=== PATIENT | male | born 1965 | race Caucasian/White ===

== ENCOUNTER 2017-08-20 14:28 | Observation (INO) | payer MEDICARE ==
[~2017-08-20] VITALS: Ht 175.3 cm; Wt 96.0 kg
[2017-08-20 14:32] VITALS: BP 128/92; PULSE 121; RESP 26; O2SAT 97
--- NOTE | 2017-08-20 14:49 | PD ---
HPI Chief Complaint: Neuro Symptoms/ Deficits Time Seen by Provider: 14:41 Travel History International Travel<30 days: No Contact w/Intl Traveler<30days: No Traveled to known affect area: No History of Present Illness HPI Patient came from [place] and apparently is out of his medication for 3 days: Klonopin, gabapentin, metoprolol 25 daily. Reported feeling dizzy, vomiting, bilateral arms feel heavy, shortness of breath, numbness in his hands bilaterally. He does have neuropathy. He denies fever, chest pain but reports some shortness of breath. [facility] Past Medical History Diabetes: Yes (BORDERLINE ) Patient Takes Glucophage: No Hypertension: Yes Medical other: Yes (NEUROPATHY ) Influenza Vaccination: Yes Past Surgical History Appendectomy: Yes Cholecystectomy: Yes Other Surgery: Yes (SPLEENECTOMY) Social History Alcohol Use: No Tobacco Use: No Substance Use: No Allergies-Medications (Allergen,Severity, Reaction): Coded Allergies: Iodinated Contrast- Oral and IV Dye (Verified Allergy, Unknown, 08/20/17) Penicillins (Verified Allergy, Unknown, 08/20/17) ropinirole (Verified Allergy, Unknown, 08/20/17) Review of Systems Except as stated in HPI: all other systems reviewed are Neg Physical Exam Narrative GENERAL: No acute distress. SKIN: Focused skin assessment warm/dry. HEAD: Atraumatic. Normocephalic. EYES: Pupils equal and round. Truncal muscles intact bilaterally. No scleral icterus. No injection or drainage. ENT: No nasal bleeding or discharge. Mucous membranes pink and moist. NECK: Trachea midline. No JVD. CARDIOVASCULAR: Regular rate and rhythm. No murmur appreciated. RESPIRATORY: No accessory muscle use. Clear to auscultation. Breath sounds equal bilaterally. GASTROINTESTINAL: Abdomen soft, non-tender, nondistended. Hepatic and splenic margins not palpable. MUSCULOSKELETAL: No obvious deformities. No clubbing. No cyanosis. No edema. NEUROLOGICAL: Awake and alert. No obvious cranial nerve deficits. Motor grossly within normal limits. Normal speech. GCS 15. NIH stroke scale of 1 for sensory in the face greater in the left than the right. PSYCHIATRIC: Appropriate mood and affect; insight and judgment normal. Data Data Last Documented VS Vital Signs Date Time Temp Pulse Resp B/P (MAP) Pulse Ox O2 Delivery O2 Flow Rate FiO2 08/20/17 17:36 120 21 125/74 (91) 96 Room Air Orders Orders Electrocardiogram (08/20/17 14:41) Prothrombin Time / Inr (Pt) (08/20/17 14:41) Act Partial Throm Time (Ptt) (08/20/17 14:41) Complete Blood Count With Diff (08/20/17 14:41) Comprehensive Metabolic Panel (08/20/17 14:41) Creatine Kinase (Cpk) (08/20/17 14:41) Drug Screen, Random Urine (08/20/17 14:41) Troponin I (08/20/17 14:41) Urinalysis - C+S If Indicated (08/20/17 14:41) Ct Brain W/O Iv Contrast(Rout) (08/20/17 14:41) Chest, Single Ap (08/20/17 14:41) Iv Access Insert/Monitor (08/20/17 14:41) Oximetry (08/20/17 14:41) Blood Glucose (08/20/17 14:41) Ckmb (Isoenzyme) Profile (08/20/17 14:41) Ct Abd/Pel W/O Iv Contrast (08/20/17 15:42) Prochlorperazine Inj (Compazine Inj) (08/20/17 15:45) Metoprolol Tartrate (Lopressor) (08/20/17 17:00) Lactic Acid (08/20/17 16:50) Sodium Chlor 0.9% 1000 Ml Inj (Ns 1000 M (08/20/17 17:15) Lorazepam Inj (Ativan Inj) (08/20/17 18:15) Admit Order (Ed Use Only) (08/20/17 18:28) Labs Laboratory Tests Test 08/20/17 15:02 08/20/17 17:11 White Blood Count 12.3 TH/MM3 Red Blood Count 4.70 MIL/MM3 Hemoglobin 14.5 GM/DL Hematocrit 43.5 % Mean Corpuscular Volume 92.5 FL Mean Corpuscular Hemoglobin 30.8 PG Mean Corpuscular Hemoglobin Concent 33.3 % Red Cell Distribution Width 14.4 % Platelet Count 381 TH/MM3 Mean Platelet Volume 9.0 FL Neutrophils (%) (Auto) 55.3 % Lymphocytes (%) (Auto) 30.7 % Monocytes (%) (Auto) 10.9 % Eosinophils (%) (Auto) 2.1 % Basophils (%) (Auto) 1.0 % Neutrophils # (Auto) 6.8 TH/MM3 Lymphocytes # (Auto) 3.8 TH/MM3 Monocytes # (Auto) 1.3 TH/MM3 Eosinophils # (Auto) 0.3 TH/MM3 Basophils # (Auto) 0.1 TH/MM3 CBC Comment DIFF FINAL Differential Comment Prothrombin Time 10.7 SEC Prothromb Time International Ratio 1.1 RATIO Activated Partial Thromboplast Time 25.0 SEC Urine Color YELLOW Urine Turbidity HAZY Urine pH 5.0 Urine Specific [place] 1.025 Urine Protein 30 mg/dL Urine Glucose (UA) NEG mg/dL Urine Ketones 20 mg/dL Urine Occult Blood SMALL Urine Nitrite NEG Urine Bilirubin NEG Urine Urobilinogen LESS THAN 2 mg/dL Urine Leukocyte Esterase NEG Urine RBC 1 /hpf Urine WBC 1 /hpf Urine Squamous Epithelial Cells <1 /hpf Urine Mucus FEW /lpf Microscopic Urinalysis Comment CATH-CULT NOT IND Blood Urea Nitrogen 13 MG/DL Creatinine 1.25 MG/DL Random Glucose 140 MG/DL Total Protein 8.1 GM/DL Albumin 4.1 GM/DL Calcium Level 8.4 MG/DL Alkaline Phosphatase 103 U/L Aspartate Amino Transf (AST/SGOT) 29 U/L Alanine Aminotransferase (ALT/SGPT) 30 U/L Total Bilirubin 0.8 MG/DL Sodium Level 139 MEQ/L Potassium Level 3.7 MEQ/L Chloride Level 107 MEQ/L Carbon Dioxide Level 21.5 MEQ/L Anion Gap 11 MEQ/L Estimat Glomerular Filtration Rate 61 ML/MIN Total Creatine Kinase 85 U/L Troponin I LESS THAN 0.02 NG/ML Urine Opiates Screen NEG Urine Barbiturates Screen NEG Urine Amphetamines Screen NEG Urine Benzodiazepines Screen NEG Urine Cocaine Screen NEG Urine Cannabinoids Screen NEG Lactic Acid Level 1.7 mmol/L MDM Medical Decision Making Medical Screen Exam Complete: Yes Emergency Medical Condition: Yes Interpretation(s) ECG: Sinus tach, rate 116, Labs: elevated wbc count, ua-neg LE/nitrite, UDS-neg Last Impressions Abdomen/Pelvis CT 08/20/17 1542 Signed Impressions: CONCLUSION: 1. I do not see an etiology of patient's abdominal pain whose had appendectomy . Head CT 08/20/17 1441 Signed Impressions: CONCLUSION: 1. Negative for acute process Chest X-Ray 08/20/17 1441 Signed Impressions: CONCLUSION: Mild compensated cardiomegaly with minimal parental changes left base Differential Diagnosis Neuropathy, TIA, CVA, ACS Narrative Course Patient presents with vomiting lateral arm feeling "heavy." She placed on shelter monitor, head CT/EKG/chest x-ray/labs/IVF ordered. Patient persistently tachy (110s-120s) despite po metoprolol, IVF, and IV ativan. Will admit for observation. Diagnosis Primary Impression: Tachycardia Admitting Information Admitting Physician Requests: Observation Condition: Stable Radha Rodriguez MD Aug 20, 2017 14:49
[2017-08-20 15:22] LABS: BILIRUBIN, URINE NEG (NEG); BLOOD, URINE SMALL (NEG); GLUCOSE,URINE NEG (NEG); KETONE, URINE 20 mg/dL (NEG); MUCUS URINE FEW /lpf (OCC); NITRITE,URINE NEG (NEG); SQUAMOUS EPITHELIAL CELL URINE <1 /hpf (0-5); URINE COLOR YELLOW (YELLW/STRAW); URINE LEUKOCYTE ESTERASE NEG (NEG)
[2017-08-20 15:26] LABS: AUTOMATED NEUTROPHIL # 6.8 TH/MM3 (1.8-7.7); BASOPHIL # 0.1 TH/MM3 (0-0.2); EOSINOPHIL # 0.3 TH/MM3 (0-0.4); EOSINOPHIL % 2.1 % (0.0-4.0); HEMATOCRIT 43.5 % (39.0-51.0); HEMOGLOBIN 14.5 GM/DL (13.0-17.0); LYMPH % 30.7 % (9.0-44.0); LYMPHOCYTE # 3.8 TH/MM3 (1.0-4.8); MEAN CELL VOLUME 92.5 FL (80.0-100.0); MEAN CORPUSCULAR HEMOGLOBIN 30.8 PG (27.0-34.0); MEAN CORPUSCULAR HGB CONC 33.3 % (32.0-36.0); MONO % 10.9 % (0.0-8.0); MONOCYTE # 1.3 TH/MM3 (0-0.9); NEUT % 55.3 % (16.0-70.0); PLATELET COUNT 381 TH/MM3 (150-450); RED CELL DISTRIBUTION WIDTH 14.4 % (11.6-17.2); WHITE BLOOD COUNT 12.3 TH/MM3 (4.0-11.0)
[2017-08-20 15:41] LABS: ALBUMIN 4.1 GM/DL (3.4-5.0); ALT (GPT) 30 U/L (12-78); AST (GOT) 29 U/L (15-37); BICARBONATE 21.5 MEQ/L (21.0-32.0); BLOOD UREA NITROGEN 13 MG/DL (7-18); CALCIUM 8.4 MG/DL (8.5-10.1); CHLORIDE 107 MEQ/L (98-107); CREATININE 1.25 MG/DL (0.60-1.30); GLOMERULAR FILTRATION RATE 61 ML/MIN (>89); GLUCOSE,RANDOM 140 MG/DL (74-106); SODIUM (NA) 139 MEQ/L (136-145)
[2017-08-20 15:43] LABS: INTERNATIONAL NORMALIZED RATIO 1.1 RATIO; PROTHROMBIN TIME - PATIENT 10.7 SEC (9.8-11.6)
[2017-08-20 15:45] LABS: ALKALINE PHOSPHATASE 103 U/L (45-117); TOTAL BILIRUBIN ADULT 0.8 MG/DL (0.2-1.0); TOTAL PROTEIN 8.1 GM/DL (6.4-8.2); TROPONIN I LESS THAN 0.02 NG/ML (0.02-0.05)
[2017-08-20] MEDS ORDERED: PROCHLORPERAZINE INJ 10 MG/2 ML VIAL IV PUSH ONE (15:45)
--- NOTE | 2017-08-20 15:58 | RADRPT ---
EXAM DATE: 08/20/2017 3:46 PM EDT AGE/SEX: 51 years / Male INDICATIONS: Vomiting. CLINICAL DATA: This is the patient's initial encounter. Patient reports that signs and symptoms have been present for 1 day and indicates a pain score of 0/10. MEDICAL/SURGICAL HISTORY: . high blood pressure, SVT Splenectomy. COMPARISON: No prior exams available for comparison. FINDINGS: Minimal parental changes left base. Right lung clear. Mild cardiomegaly. The portion of the bony skel eton visualized is unremarkable. CONCLUSION: Mild compensated cardiomegaly with minimal parental changes left base Electronically signed by: Joe Raymond MD 08/20/2017 3:56 PM EDT
--- NOTE | 2017-08-20 16:31 | RADRPT ---
EXAM DATE: 08/20/2017 4:28 PM EDT AGE/SEX: 51 years / Male INDICATIONS: Bilateral upper extremity numbness. CLINICAL DATA: This is the patient's initial encounter. Patient reports that signs and symptoms have been present for 1 day and indicates a pain score of 0/10. MEDICAL/SURGICAL HISTORY: Diabetes. Hypertension. Appendectomy. Cholecystectomy. Splenectomy. RADIATION DOSE: 46.68 CTDI (mGy) COMPARISON: No prior exams available for comparison. TECHNIQUE: CT of the head without contrast. Using automated exposure control and adjustment of the mA and/or kV according to patient size, radiation dose was kept as low as reasonably achievable to ob tain optimal diagnostic quality images. FINDINGS: Cerebrum: The ventricles are normal for age. No evidence of midline shift, mass lesion, hemorrhage or acute infarction. No extraaxial fluid collections are seen. Posterior Fossa: The cerebellum and brainstem are intact. The 4th ventricle is midline. The cerebe llopontine angle is unremarkable. Extracranial: The visualized portion of the orbits is intact. Skull: The calvaria is intact. No evidence of skull fracture. CONCLUSION: 1. Negative for acute process Electronically signed by: Joe Raymond MD 08/20/2017 4:30 PM EDT
--- NOTE | 2017-08-20 16:33 | RADRPT ---
EXAM DATE: 08/20/2017 4:25 PM EDT AGE/SEX: 51 years / Male INDICATIONS: Right lower abdomen pain today. CLINICAL DATA: This is the patient's initial encounter. Patient reports that signs and symptoms have been present for 1 day and indicates a pain score of 7/10. MEDICAL/SURGICAL HISTORY: Hypertension. Diabetes. Cholecystectomy. Splenectomy. Appendectomy . RADIATION DOSE: 14.86 CTDI (mGy) COMPARISON: No prior exams available for comparison. TECHNIQUE: Multiple contiguous axial images were obtained through the abdomen. Images were obtained using multiple row detector helical technique. Using dose reduction techniques, radiation dose was ke pt as low as reasonably achievable to obtain optimal diagnostic quality images. FINDINGS: The lower lungs are clear. Mild fatty replacement to the liver Spleen is surgically absent. A small apparent splenial is evident. Pancreas and adrenal glands are unremarkable Right and left kidneys appear normal There are no inflammatory changes in the abdomen The cecum is unremarkable. There are no inflammatory changes evident. In the pelvis minimal stool is seen in the sigmoid colon. There is no adnexal mass. Review of bone windows reveals mild degenerative changes lower lumbar spine. CONCLUSION: 1. I do not see an etiology of patient's abdominal pain whose had appendectomy. Electronically signed by: Joe Raymond MD 08/20/2017 4:32 PM EDT
[2017-08-20] MEDS ORDERED: METOPROLOL TARTRATE 25 MG TAB PO ONE (17:00)
[2017-08-20] MEDS ORDERED: SODIUM CHLOR 0.9% 1000 ML INJ 1,000 ML IV ONE (17:15)
[2017-08-20 17:36] VITALS: BP 125/74; PULSE 120; RESP 21; O2SAT 96
[2017-08-20] MEDS ORDERED: LORazepam 2 MG/ML VIAL IV PUSH ONE (18:15)
[2017-08-20 18:31] VITALS: BP 121/76; PULSE 101; RESP 21; O2SAT 95
[2017-08-20 19:19] VITALS: BP 132/63; PULSE 101; RESP 20; O2SAT 95
[2017-08-20] MEDS ORDERED: NALOXONE HCL 0.4 MG/ML AMP IV PUSH PRN (19:30)
[2017-08-20] MEDS ORDERED: SODIUM CHLORIDE 0.9% FLUSH 10 ML FLUSH IV FLUSH PRN (19:30)
[2017-08-20] MEDS ORDERED: ACETAMINOPHEN 325 MG TAB PO PRN (19:30)
--- NOTE | 2017-08-20 19:36 | EKG ---
Date Performed: 08/20/2017 Time Performed: 14:38:45 PTAGE: 51 years EKG: Baseline artifact present SINUS TACHYCARDIA POSSIBLE ANTERIOR MYOCARDIAL INFARCTION ABNORMA L ECG NO PREVIOUS TRACING DOCTOR: Sunil Muro Interpretating Date/Time 08/20/2017 19:35:13
[2017-08-20] MEDS ORDERED: ONDANSETRON ODT 4 MG TAB PO PRN (19:45)
[2017-08-20] MEDS ORDERED: NEUR600T PO (19:51)
[2017-08-20] MEDS ORDERED: PAXI10TA8 PO (19:51)
[2017-08-20] MEDS ORDERED: ZANT150T2 PO (19:51)
[2017-08-20] MEDS ORDERED: CETI10CA3 PO (19:51)
[2017-08-20] MEDS ORDERED: KLON2TAB PO (19:51)
[2017-08-20] MEDS ORDERED: METO1TAB42 PO (19:51)
[2017-08-20] MEDS ORDERED: MAGNESIUM PO (19:51)
[2017-08-20] MEDS ORDERED: MONT10TA2 PO (19:51)
[2017-08-20] MEDS ORDERED: SODIUM CHLOR 0.9% 1000 ML INJ 1,000 ML IV SCH (20:00)
[2017-08-20] MEDS: SODIUM CHLORIDE 0.9% FLUSH 10 ML FLUSH IV FLUSH SCH (20:41)
[2017-08-20 20:55] VITALS: BP 127/83; PULSE 97; RESP 17; TEMP 98.7; O2SAT 95
[2017-08-20 21:43] VITALS: PULSE 103
[2017-08-20 22:27] LABS: TROPONIN I LESS THAN 0.02 NG/ML (0.02-0.05)
--- NOTE | 2017-08-20 22:36 | HHI.HP ---
[facility] Admission Diagnosis persistent tachycardia Diagnoses: (1) Tachycardia Chief Complaint: nausea with vomiting Travel History International Travel<30 Days: No Contact w/Intl Traveler <30 Da: No Traveled to Known Affected Are: No History of Present Illness Mr. Lara is a 51-year-old male with a history of SVT, diet controlled type 2 diabetes mellitus, hypertension, asthma, seasonal allergies, anxiety, GERD, fibromyalgia, restless leg syndrome, and diet-controlled hyperlipidemia who presents to the emergency room on 08/20/2017 complaining of dizziness with severe nausea and vomiting 1 episode. He also complained of hyperventilation, bilateral arm heaviness, and bilateral hand numbness and was admitted to observation under the [facility] service. The patient is seen in the CDU. He states that he is visiting here from [place] and left all of his medications at home -he has not taken them since Sunday. Today he was experiencing dizziness and nausea with palpitations. He and his thought his blood sugar might be low and he went to a pancake house to get some food but subsequently vomited the food resulting in hyperventilation because he was "trying not to vomit" by breathing fast and hard. He denies feeling short of breath at any point in time. He does report palpitations that lasted for about 20-30 minutes but denies chest pain or pressure or any discomfort. He reports some bilateral arm heaviness with bilateral hand numbness during this time. His most recent hemoglobin A1c was 6.3. He sees Dr. Geoff Magdaleno - outsole cementer machine in [place] for history of SVT. His PCP is Dr. Eden in [place]. He denies any history of [place]. Patient's EKG shows q waves in V3 and V4 x 2 EKGs at this time. One more is pending. Review of Systems Except as stated in HPI: all other systems reviewed are Neg Past Family Social History Past Medical History SVT, diet controlled type 2 diabetes mellitus, hypertension, asthma, seasonal allergies, anxiety, GERD, fibromyalgia, restless leg syndrome, and diet- controlled hyperlipidemia . Past Surgical History Appendectomy Cholecystectomy Splenectomy Colonoscopies . Reported Medications Reported Meds & Active Scripts Active Reported Zyrtec (Cetirizine HCl) 10 Mg Capsule 10 Mg PO HS Singulair (Montelukast Sodium) 10 Mg Tab 10 Mg PO HS Klonopin (Clonazepam) 2 Mg Tab 2 Mg PO HS Neurontin (Gabapentin) 600 Mg Tab 600 Mg PO HS [Magnesium ] 500 Mg PO HS Paxil (Paroxetine HCl) 10 Mg Tab 40 Mg PO DAILY Metoprolol Succinate ER 24 HR (Metoprolol Succinate) 25 Mg Tab 25 Mg PO DAILY Zantac (Ranitidine HCl) 150 Mg Tab 150 Mg PO BID . Allergies: Coded Allergies: Iodinated Contrast- Oral and IV Dye (Verified Allergy, Unknown, 08/20/17) Penicillins (Verified Allergy, Unknown, 08/20/17) ropinirole (Verified Allergy, Unknown, 08/20/17) Family History Paternal grandfather with aortic aneurysm Mother with colon cancer, age 37 and also had arthritis Unaware of who his father is . Social History Tobacco: Smoked from ages [age] -a couple of cigarettes here and there, quit smoking 30 years ago Alcohol: Denies Illicit Drugs: Denies . . Physical Exam Vital Signs Vital Signs Date Time Temp Pulse Resp B/P (MAP) Pulse Ox O2 Delivery O2 Flow Rate FiO2 08/20/17 21:43 103 08/20/17 20:55 98.7 97 17 127/83 (98) 95 08/20/17 20:05 08/20/17 19:19 101 20 132/63 (86) 95 Room Air 08/20/17 18:31 101 21 121/76 (91) 95 Room Air 08/20/17 17:36 120 21 125/74 (91) 96 Room Air 08/20/17 14:38 97 Room Air 08/20/17 14:32 121 26 128/92 (104) 97 Physical Exam GENERAL: This is a pleasant overweight middle-aged male patient, in no apparent distress. SKIN: No rashes, ecchymoses or lesions. Cool and dry. HEAD: Atraumatic. Normocephalic. EYES: No scleral icterus. No injection or drainage. ENT: Nose without bleeding, purulent drainage. NECK: Trachea midline. No JVD or lymphadenopathy. CARDIOVASCULAR: Regular rate and rhythm without murmurs, gallops, or rubs. RESPIRATORY: Clear to auscultation. Breath sounds equal bilaterally. No wheezes , rales, or rhonchi. GASTROINTESTINAL: Normally active bowel sounds. Abdomen soft, mildly tender to palpation right lower quadrant, nondistended. No guarding. No rebound. MUSCULOSKELETAL: Extremities without clubbing, cyanosis, or edema. No calf tenderness. NEUROLOGICAL: Awake and alert. Motor and sensory grossly within normal limits. Normal speech. . Laboratory Laboratory Tests Test 08/20/17 15:02 08/20/17 17:11 08/20/17 21:22 White Blood Count 12.3 Red Blood Count 4.70 Hemoglobin 14.5 Hematocrit 43.5 Mean Corpuscular Volume 92.5 Mean Corpuscular Hemoglobin 30.8 Mean Corpuscular Hemoglobin Concent 33.3 Red Cell Distribution Width 14.4 Platelet Count 381 Mean Platelet Volume 9.0 Neutrophils (%) (Auto) 55.3 Lymphocytes (%) (Auto) 30.7 Monocytes (%) (Auto) 10.9 Eosinophils (%) (Auto) 2.1 Basophils (%) (Auto) 1.0 Neutrophils # (Auto) 6.8 Lymphocytes # (Auto) 3.8 Monocytes # (Auto) 1.3 Eosinophils # (Auto) 0.3 Basophils # (Auto) 0.1 CBC Comment DIFF FINAL Differential Comment Prothrombin Time 10.7 Prothromb Time International Ratio 1.1 Activated Partial Thromboplast Time 25.0 Urine Color YELLOW Urine Turbidity HAZY Urine pH 5.0 Urine Specific [place] 1.025 Urine Protein 30 Urine Glucose (UA) NEG Urine Ketones 20 Urine Occult Blood SMALL Urine Nitrite NEG Urine Bilirubin NEG Urine Urobilinogen LESS THAN 2 Urine Leukocyte Esterase NEG Urine RBC 1 Urine WBC 1 Urine Squamous Epithelial Cells <1 Urine Mucus FEW Microscopic Urinalysis Comment CATH-CULT NOT IND Blood Urea Nitrogen 13 Creatinine 1.25 Random Glucose 140 Total Protein 8.1 Albumin 4.1 Calcium Level 8.4 Alkaline Phosphatase 103 Aspartate Amino Transf (AST/SGOT) 29 Alanine Aminotransferase (ALT/SGPT) 30 Total Bilirubin 0.8 Sodium Level 139 Potassium Level 3.7 Chloride Level 107 Carbon Dioxide Level 21.5 Anion Gap 11 Estimat Glomerular Filtration Rate 61 Total Creatine Kinase 85 113 Troponin I LESS THAN 0.02 LESS THAN 0.02 Urine Opiates Screen NEG Urine Barbiturates Screen NEG Urine Amphetamines Screen NEG Urine Benzodiazepines Screen NEG Urine Cocaine Screen NEG Urine Cannabinoids Screen NEG Lactic Acid Level 1.7 Result Diagram: 08/20/17 1502 08/20/17 1502 Imaging Last Impressions Abdomen/Pelvis CT 08/20/17 1542 Signed Impressions: CONCLUSION: 1. I do not see an etiology of patient's abdominal pain whose had appendectomy . Head CT 08/20/17 1441 Signed Impressions: CONCLUSION: 1. Negative for acute process Chest X-Ray 08/20/17 1441 Signed Impressions: CONCLUSION: Mild compensated cardiomegaly with minimal parental changes left base Caprini VTE Risk Assessment Caprini VTE Risk Assessment: Mod/High Risk (score >= 2) Caprini Risk Assessment Model Point Value = 1 Point Value = 2 Point Value = 3 Point Value = 5 Age 41-60 Minor surgery BMI > 25 kg/m2 Swollen legs Varicose veins or History of unexplained or recurrent spontaneous Oral contraceptives or hormone replacement Sepsis (< 1 month) Serious lung disease, including pneumonia (< 1 month) Abnormal pulmonary function Acute myocardial infarction Congestive heart failure (< 1 month) History of inflammatory bowel disease Medical patient at bed rest Age 61-74 Arthroscopic surgery Major open surgery (> 45 min) Laparoscopic surgery (> 45 min) Malignancy Confined to bed (> 72 hours) Immobilizing plaster cast Central venous access Age >= 75 History of VTE Family history of VTE Factor V Leiden Prothrombin [id number] Lupus anticoagulant Anticardiolipin antibodies Elevated serum homocysteine Heparin-induced thrombocytopenia Other congenital or acquired thrombophilia Stroke (< 1 month) Elective arthroplasty Hip, pelvis, or leg fracture Acute spinal cord injury (< 1 month) Prophylaxis Regimen Total Risk Factor Score Risk Level Prophylaxis Regimen 0-1 Low Early ambulation 2 Moderate Order ONE of the following: *Sequential Compression Device (SCD) *Heparin 5000 units SQ BID 3-4 Higher Order ONE of the following medications: *Heparin 5000 units SQ TID *Enoxaparin/Lovenox 40 mg SQ daily (WT < 150 kg, CrCl > 30 mL/min) *Enoxaparin/Lovenox 30 mg SQ daily (WT < 150 kg, CrCl > 10-29 mL/min) *Enoxaparin/Lovenox 30 mg SQ BID (WT < 150 kg, CrCl > 30 mL/min) AND/OR *Sequential Compression Device (SCD) 5 or more Highest Order ONE of the following medications: *Heparin 5000 units SQ TID (Preferred with Epidurals) *Enoxaparin/Lovenox 40 mg SQ daily (WT < 150 kg, CrCl > 30 mL/min) *Enoxaparin/Lovenox 30 mg SQ daily (WT < 150 kg, CrCl > 10-29 mL/min) *Enoxaparin/Lovenox 30 mg SQ BID (WT < 150 kg, CrCl > 30 mL/min) AND *Sequential Compression Device (SCD) Assessment and Plan Problem List: (1) Tachycardia ICD Code: R00.0 - Tachycardia, unspecified Status: Acute Assessment and Plan Mr. Lara is a 51-year-old male with a history of SVT, diet controlled type 2 diabetes mellitus, hypertension, asthma, seasonal allergies, anxiety, GERD, fibromyalgia, restless leg syndrome, and diet-controlled hyperlipidemia who presents to the emergency room on 08/20/2017 complaining of dizziness with severe nausea and vomiting 1 episode. He also complained of hyperventilation, bilateral arm heaviness, and bilateral hand numbness and was [facility]. Tachycardia - Likely secondary to beta-elvin withdrawal and possible benzodiazepine withdrawal/anxiety - Home metoprolol and Klonopin restarted - IV fluid hydration with normal saline at 100 cc/h -Continuous cardiac telemetry to monitor for cardiac arrhythmia Concern for atypical chest pain - We will rule out ACS with serial EKGs and cardiac enzymes - Discussed Q-wave in V3 and V4 with patient he will follow-up with outpatient outsole cementer machine upon discharge Nausea with vomiting - Zofran 4 mg p.o. every 6 hours as needed nausea and vomiting - IV fluid hydration with normal saline at 100 cc/h - We will start full liquid diet and progress if tolerated -if tolerates liquids , will DC IV fluids Leukocytosis - Patient reports leukocytes elevated chronically since splenectomy and states 12.3 (on admission) is normal for him - We will recheck CBC in a.m. and follow results Chronic pain secondary to fibromyalgia and RLS - resume Klonopin as above and Gabapentin Type 2 Diabetes Mellitus - diet controlled - Accu-Cheks before meals and at bedtime with low-dose NovoLog sliding scale coverage - As needed hypoglycemia protocol - Monitor trends and blood glucose readings and adjust treatments as indicated DVT prophylaxis - SCDs/TEDs . Discussed Condition With patient, RN, and Dr. Ley . Saray Quevedo Aug 20, 2017 22:36
[2017-08-20] MEDS ORDERED: CETIRIZINE HCL 10 MG PO SCH (22:45)
[2017-08-20] MEDS ORDERED: MONTELUKAST SODIUM 10 MG TAB PO SCH (22:45)
[2017-08-20] MEDS ORDERED: clonazePAM 1 MG TAB PO SCH (22:45)
[2017-08-20] MEDS ORDERED: GABAPENTIN 300 MG CAP PO SCH (22:45)
[2017-08-21 01:35] VITALS: BP 115/63; PULSE 93; RESP 18; TEMP 98.1; O2SAT 96
[2017-08-21] MEDS ORDERED: GLUCAGON 1 MG/ML VIAL OTHER PRN (01:45)
[2017-08-21] MEDS ORDERED: DEXTROSE 50% IN WATER 50 ML VIAL(D50) IV PUSH PRN (01:45)
[2017-08-21 02:44] VITALS: PULSE 92
[2017-08-21 04:05] VITALS: BP 119/75; PULSE 95; RESP 16; TEMP 98.8; O2SAT 95
[2017-08-21 05:10] LABS: BASOPHIL # 0.1 TH/MM3 (0-0.2); BASOPHIL % 0.8 % (0.0-2.0); EOSINOPHIL # 0.1 TH/MM3 (0-0.4); HEMATOCRIT 40.6 % (39.0-51.0); HEMOGLOBIN 13.6 GM/DL (13.0-17.0); LYMPH % 38.6 % (9.0-44.0); LYMPHOCYTE # 4.2 TH/MM3 (1.0-4.8); MEAN CELL VOLUME 93.7 FL (80.0-100.0); MEAN CORPUSCULAR HEMOGLOBIN 31.4 PG (27.0-34.0); MEAN CORPUSCULAR HGB CONC 33.5 % (32.0-36.0); MEAN PLATELET VOLUME 9.1 FL (7.0-11.0); MONO % 13.3 % (0.0-8.0); MONOCYTE # 1.4 TH/MM3 (0-0.9); NEUT % 46.3 % (16.0-70.0); PLATELET COUNT 337 TH/MM3 (150-450); RED BLOOD COUNT 4.33 MIL/MM3 (4.50-5.90); RED CELL DISTRIBUTION WIDTH 14.4 % (11.6-17.2); WHITE BLOOD COUNT 10.8 TH/MM3 (4.0-11.0)
[2017-08-21 05:22] LABS: BICARBONATE 21.3 MEQ/L (21.0-32.0); BLOOD UREA NITROGEN 11 MG/DL (7-18); CALCIUM 7.9 MG/DL (8.5-10.1); CHLORIDE 108 MEQ/L (98-107); CREATININE 1.05 MG/DL (0.60-1.30); GLOMERULAR FILTRATION RATE 74 ML/MIN (>89); GLUCOSE,RANDOM 108 MG/DL (74-106); SODIUM (NA) 139 MEQ/L (136-145)
[2017-08-21 05:26] LABS: TROPONIN I LESS THAN 0.02 NG/ML (0.02-0.05)
[2017-08-21] MEDS ORDERED: INSULIN ASPART SUPPLEMENTAL SCALE SQ SCH (08:00)
[2017-08-21] MEDS ORDERED: PARoxetine HCL 20 MG TAB PO SCH (09:00)
[2017-08-21] MEDS ORDERED: FAMOTIDINE 20 MG TAB PO SCH (09:00)
[2017-08-21] MEDS ORDERED: METOPROLOL SUCCINATE 25 MG EXTENDED RELEASE TAB PO SCH (09:00)
[2017-08-21 09:10] VITALS: BP 125/70; PULSE 94; RESP 16; TEMP 98.9; O2SAT 92
[2017-08-21] MEDS: SODIUM CHLORIDE 0.9% FLUSH 10 ML FLUSH IV FLUSH SCH (09:16)
[2017-08-21] MEDS ORDERED: METO1TAB42 PO (09:54)
--- NOTE | 2017-08-21 09:54 | HHI.DS ---
Discharge Summary Admission Date Aug 20, 2017 at 18:29 Discharge Date: Aug 21, 2017 Admitting Diagnosis persistent tachycardia (1) Tachycardia ICD Code: R00.0 - Tachycardia, unspecified Status: Acute Procedures none Brief History - From Admission Mr. Lara is a 51-year-old male with a history of SVT, diet controlled type 2 diabetes mellitus, hypertension, asthma, seasonal allergies, anxiety, GERD, fibromyalgia, restless leg syndrome, and diet-controlled hyperlipidemia who presents to the emergency room on 08/20/2017 complaining of dizziness with severe nausea and vomiting 1 episode. He also complained of hyperventilation, bilateral arm heaviness, and bilateral hand numbness and was admitted to observation under the [facility] service. The patient is seen in the CDU. He states that he is visiting here from [place] and left all of his medications at home -he has not taken them since Sunday. Today he was experiencing dizziness and nausea with palpitations. He and his thought his blood sugar might be low and he went to a pancake house to get some food but subsequently vomited the food resulting in hyperventilation because he was "trying not to vomit" by breathing fast and hard. He denies feeling short of breath at any point in time. He does report palpitations that lasted for about 20-30 minutes but denies chest pain or pressure or any discomfort. He reports some bilateral arm heaviness with bilateral hand numbness during this time. His most recent hemoglobin A1c was 6.3. He sees Dr. Geoff Magdaleno - wire mesh knitter in [place] for history of SVT. His PCP is Dr. Eden in [place]. He denies any history of [place]. Patient's EKG shows q waves in V3 and V4 x 2 EKGs at this time. One more is pending. CBC/BMP: 08/21/17 0400 08/21/17 0400 Significant Findings Laboratory Tests Test 08/20/17 15:02 08/20/17 17:11 08/20/17 21:22 08/21/17 04:00 White Blood Count 12.3 TH/MM3 (4.0-11.0) Monocytes (%) (Auto) 10.9 % (0.0-8.0) 13.3 % (0.0-8.0) Monocytes # (Auto) 1.3 TH/MM3 (0-0.9) 1.4 TH/MM3 (0-0.9) Urine Turbidity HAZY (CLEAR) Urine Protein 30 mg/dL (NEG-TRACE) Urine Occult Blood SMALL (NEG) Urine Mucus FEW /lpf (OCC) Random Glucose 140 MG/DL (74-106) 108 MG/DL (74-106) Calcium Level 8.4 MG/DL (8.5-10.1) 7.9 MG/DL (8.5-10.1) Estimat Glomerular Filtration Rate 61 ML/MIN (>89) 74 ML/MIN (>89) Troponin I LESS THAN 0.02 NG/ML LESS THAN 0.02 NG/ML LESS THAN 0.02 NG/ML Red Blood Count 4.33 MIL/MM3 (4.50-5.90) Chloride Level 108 MEQ/L (98-107) Imaging Last Impressions Abdomen/Pelvis CT 08/20/17 1542 Signed Impressions: CONCLUSION: 1. I do not see an etiology of patient's abdominal pain whose had appendectomy . Head CT 08/20/17 1441 Signed Impressions: CONCLUSION: 1. Negative for acute process Chest X-Ray 08/20/17 144 Signed Impressions: CONCLUSION: Mild compensated cardiomegaly with minimal parental changes left base PE at Discharge GENERAL: This is a pleasant overweight middle-aged male patient, in no apparent distress. CARDIOVASCULAR: Regular rate and rhythm without murmurs, gallops, or rubs. RESPIRATORY: Clear to auscultation. Breath sounds equal bilaterally. No wheezes , rales, or rhonchi. GASTROINTESTINAL: Normally active bowel sounds. Abdomen soft, mildly tender to palpation right lower quadrant, nondistended. No guarding. No rebound. MUSCULOSKELETAL: Extremities without clubbing, cyanosis, or edema. No calf tenderness. NEUROLOGICAL: Awake and alert. Motor and sensory grossly within normal limits. Normal speech. Hospital Course Mr. Lara is a 51-year-old male with a history of SVT, diet controlled type 2 diabetes mellitus, hypertension, asthma, seasonal allergies, anxiety, GERD, fibromyalgia, restless leg syndrome, and diet-controlled hyperlipidemia who presents to the emergency room on 08/20/2017 complaining of dizziness with severe nausea and vomiting 1 episode. He also complained of hyperventilation, bilateral arm heaviness, and bilateral hand numbness and [facility]. Patient says he did not take his meds from back home in [place]. Says he takes metoprolol. He palns to go home today and has all his meds at home. Metoprolol prescription provided at [place] Tachycardia - Likely secondary to beta-elvin withdrawal and possible benzodiazepine withdrawal/anxiety - Home metoprolol and Klonopin restarted - Received IV fluid hydration with normal saline at 100 cc/h -Continuous cardiac telemetry to monitor for cardiac arrhythmia - HR controlled with meds - Patient Concern for atypical chest pain - We will rule out ACS with serial EKGs and cardiac enzymes - Discussed Q-wave in V3 and V4 with patient he will follow-up with outpatient wire mesh knitter upon discharge Nausea with vomiting - Zofran 4 mg p.o. every 6 hours as needed nausea and vomiting - IV fluid hydration with normal saline at 100 cc/h - We will start full liquid diet and progress if tolerated -if tolerates liquids , will DC IV fluids Leukocytosis - Patient reports leukocytes elevated chronically since splenectomy and states 12.3 (on admission) is normal for him - We will recheck CBC in a.m. and follow results Chronic pain secondary to fibromyalgia and RLS - resume Klonopin as above and Gabapentin Type 2 Diabetes Mellitus - diet controlled - Accu-Cheks before meals and at bedtime with low-dose NovoLog sliding scale coverage - As needed hypoglycemia protocol - Monitor trends and blood glucose readings and adjust treatments as indicated DVT prophylaxis - SCDs/TEDs Improved. Patient has metoprolol back home and will go home today. DC home in stable condition to follow up as OP with PCP and consultants Pt Condition on Discharge: Stable Discharge Disposition: Discharge Home Discharge Time: > 30 minutes Discharge Instructions DIET: Follow Instructions for: Heart Healthy Diet Activities you can perform: Regular-No Restrictions Follow up Referrals: PCP Follow-up - 2-3 Days Continued Medications: Cetirizine HCl (Zyrtec) 10 Mg Capsule 10 MG PO HS Clonazepam (Klonopin) 2 Mg Tab 2 MG PO HS, #60 TAB 0 Refills Gabapentin (Neurontin) 600 Mg Tab 600 MG PO HS, #30 TAB 0 Refills Metoprolol Succinate ER 24 HR (Metoprolol Succinate ER 24 HR) 25 Mg Tab 25 MG PO DAILY for Blood Pressure Management, #30 TAB 0 Refills (This prescription has been renewed) Montelukast (Singulair) 10 Mg Tab 10 MG PO HS, #30 TAB 0 Refills Paroxetine (Paxil) 10 Mg Tab 40 MG PO DAILY, #30 TAB 0 Refills Ranitidine (Zantac) 150 Mg Tab 150 MG PO DAILY for Reduce Stomach Acid, #30 TAB 0 Refills [Magnesium ] () 500 MG PO HS Shelby Alonso MD Aug 21, 2017 09:54
--- NOTE | 2017-08-21 13:29 | EKG ---
Date Performed: 08/21/2017 Time Performed: 04:02:40 PTAGE: 51 years EKG: Sinus rhythm NORMAL ECG No significant change from prior electrocardiogram. PREVIOUS TRACING : 08/20/2017 20.58 DOCTOR: Sunil Muro Interpretating Date/Time 08/21/2017 13:28:58
--- NOTE | 2017-08-21 13:42 | EKG ---
Date Performed: 08/20/2017 Time Performed: 20:58:56 PTAGE: 51 years EKG: Sinus rhythm POSSIBLE ANTERIOR MYOCARDIAL INFARCTION BORDERLINE ECG Prior EKG has significant artifact but I see no definite changes. PREVIOUS TRACING : 08/20/2017 14.38 DOCTOR: Sunil Muro Interpretating Date/Time 08/21/2017 13:41:43
== END 2017-08-21 11:43 | disposition home or self-care (01) ==
LOC: NEPE 14:28 → NEDA 18:29 → NEPFCDU 20:03
PROVIDERS: ADMIT Hospitalist; ATTEND Hospitalist
DX: R00.0 Tachycardia, unspecified (principal); R42 Dizziness and giddiness; I11.9 Hypertensive heart disease without heart failure; E11.9 Type 2 diabetes mellitus without complications; G62.9 Polyneuropathy, unspecified; E78.5 Hyperlipidemia, unspecified; D72.829 Elevated white blood cell count, unspecified; G25.81 Restless legs syndrome; G89.29 Other chronic pain; J45.909 Unspecified asthma, uncomplicated; M79.7 Fibromyalgia; K21.9 Gastro-esophageal reflux disease without esophagitis; Z87.891 Personal history of nicotine dependence; Z90.81 Acquired absence of spleen; Z80.0 Family history of malignant neoplasm of digestive organs
CPT/HCPCS: 70450; 71045; 74176; 80048; 80053; 80307; 81001; 82550; 82948; 83605; 84484; 85025; 85610; 85730; 93005; 96361; 96374; 96375; 99285; G0378; J0780; J2060; J7030